=== PATIENT | female | born 1940 ===

== ENCOUNTER → 2021-10-01 | Outpatient (CLI) | payer MEDICARE, OTHER ==
--- NOTE | 2021-10-02 23:40 | PE ---
EXAMINATION TYPE: PET CT fusion skull to thigh DATE OF EXAM: 10/01/2021 COMPARISON: Outside CT chest April 18, 2021 HISTORY: Solitary pulmonary nodule, abnormal CT TECHNIQUE: Following the intravenous administration of 7.1 mCi of F-18 FDG, whole body images are pe rformed from the skull base to the midthigh. Images are reviewed on the computer in the coronal, axi al, and sagittal planes. Reconstructed rotating images are created on independent workstation and re viewed on the computer. A localization and attenuation correction CT is performed in conjunction wi th the PET scan. Blood glucose level was 82. SCAN: Initial Scan FINDINGS: SKULL BASE AND NECK: No abnormal hypermetabolic uptake. 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 No abnormal hypermetabolic uptake. ABDOMEN AND PELVIS: Normal excretion is present. No abnormal hypermetabolic uptake. OSSEOUS STRUCTURES: No abnormal hypermetabolic uptake. OTHER CT: Mild calcified plaque bilateral carotid bulb level. Moderate mucosal thickening left maxill hope sinus. Mild mucosal thickening inferior right maxillary sinus. Ascending aorta measures up to 3.7 cm in diameter. Moderate three-vessel coronary artery calcification. Mild bibasilar linear scarring. Uterus surgically absent or markedly atrophic. Single right-sided pelvic phlebolith. Facet arthropath y lower lumbar spine. IMPRESSION: No suspicious hypermetabolic nodules or masses. No suspicious hypermetabolic lesions.
== END | disposition home or self-care (01) ==
LOC: RADPETMAIN 16:42
PROVIDERS: ATTEND Internal Medicine Critical Care Medicine
DX: R91.8 Other nonspecific abnormal finding of lung field (principal)
CPT/HCPCS: 78815; A9552